=== PATIENT | male | born 1985 | race Hispanic/Latino ===

== ENCOUNTER 2019-04-01 18:04 | Emergency (ER) | payer OTHER | END 2019-04-01 20:47 | disposition home or self-care (01) | LOC: EDH 18:04 | DX: S52.124A Nondisplaced fracture of head of right radius, initial encounter for closed fracture (principal); W18.39XA Other fall on same level, initial encounter; Y93.01 Activity, walking, marching and hiking; Y92.89 Other specified places as the place of occurrence of the external cause; Y99.8 Other external cause status | CPT/HCPCS: 29105; 73090 ==